=== PATIENT | male | born 1985 | race Caucasian/White ===

== ENCOUNTER 2017-09-08 19:44 | Emergency (ER) | payer OTHER, SELFPAY ==
[2017-09-08] MEDS ORDERED: Amoxicillin/Potassium Clav 875 MG TAB ONE (20:55)
[2017-09-08] MEDS ORDERED: Adacel (T-DAP) 0.5 ML VIAL ONE (20:55)
[2017-09-08] MEDS ORDERED: Sodium Chloride Irrig Solution 250 ML BOT ONE (21:00)
== END 2017-09-08 21:54 | disposition home or self-care (01) ==
LOC: MADERS 19:44
DX: S01.551A Open bite of lip, initial encounter (principal); F43.10 Post-traumatic stress disorder, unspecified; F17.200 Nicotine dependence, unspecified, uncomplicated; W55.01XA Bitten by cat, initial encounter
CPT/HCPCS: 12011; 90471; 90715

== ENCOUNTER 2017-11-11 20:09 | Emergency (ER) | payer OTHER ==
[2017-11-11] MEDS ORDERED: HYDROcodone/Acetaminophen 10/325 mg Tablet ONE (20:29)
[2017-11-11] MEDS ORDERED: Acetaminophen 325 MG TAB ONE (20:30)
[2017-11-11] MEDS ORDERED: Ibuprofen 800 MG TAB ONE (20:30)
--- NOTE | 2017-11-11 21:40 | RAD ---
FOUR VIEWS OF THE LEFT KNEE: 11/11/17 COMPARISON: None. HISTORY: Left knee pain. FINDINGS: Four views left knee shows no evidence of acute fracture or dislocation. No knee effusion is seen. No degenerative changes are present. IMPRESSION: No evidence of acute osseous abnormality. POS: [facility]
== END 2017-11-11 21:46 | disposition home or self-care (01) ==
LOC: MADERS 20:09
DX: S83.422A Sprain of lateral collateral ligament of left knee, initial encounter (principal); F43.10 Post-traumatic stress disorder, unspecified; F17.200 Nicotine dependence, unspecified, uncomplicated; X58.XXXA Exposure to other specified factors, initial encounter; Y93.61 Activity, american tackle football

== ENCOUNTER 2022-10-27 07:28 | Emergency (ER) | payer OTHER ==
[2022-10-27] MEDS ORDERED: Iopamidol 370 76% 100 ML VIAL ONE (08:43)
[2022-10-27 08:52] LABS: Hematocrit 48.2 % (42.0-52.0); Hemoglobin 16.1 g/dL (14.0-18.0); Mean Corpuscular HGB CONC 33.4 g/dL (32.0-36.0); Mean Corpuscular Hemoglobin 32.2 pg (27.0-31.0); Mean Corpuscular Volume 96.7 fl (78.0-98.0); Mean Platelet Volume 13.2 fL (7.4-10.4); Platelet Count 310 10x3/uL (130-400); RBC Distribution Width 11.6 % (11.5-14.5); Red Blood Cell (RBC) Count 4.98 mill/uL (4.70-6.10); White Blood Cell (WBC) Count 14.5 10x3/uL (4.8-10.8)
[2022-10-27 08:58] LABS: Manual Diff?? YES
[2022-10-27 09:01] LABS: Band 1 % (5-11); Eosinophils 1 % (0-10); Lymphocytes 13 % (21-51); MDiff Complete? YES; Monocytes 5 % (0-10); Neutrophil 80 % (42-75)
[2022-10-27 09:02] LABS: Anisocytosis SLIGHT = 6-15 cells (100X) (0-5/hpf); Platelet Adequacy Comment Appears Adequate
[2022-10-27] MEDS ORDERED: fentaNYL 50 mcg/mL 1 mL Vial ONE (09:04)
[2022-10-27] MEDS ORDERED: Dicyclomine 20 MG/2 ML VIAL ONE (09:05)
[2022-10-27] MEDS ORDERED: Lactated Ringer's 1,000 ML ONE (09:05)
[2022-10-27 09:08] LABS: ALT (SGPT) 21 U/L (8-55); AST (SGOT) 16 U/L (5-34); Alkaline Phosphatase 81 U/L (40-110); Anion Gap 16 mmol/L (10-20); BUN (Urea Nitrogen) 9 mg/dL (8.9-20.6); Bilirubin, Total 0.5 mg/dL (0.2-1.2); Calc. Creatinine Clearance 0 mL/min (70-130); Calcium 9.6 mg/dL (7.8-10.44); Carbon Dioxide 24 mmol/L (22-29); Chloride 104 mmol/L (98-107); Estimated GFR 115; Globulin 3.4 g/dL (2.4-3.5); Glucose 110 mg/dL (70-105); Lipase 9 U/L (8-78); Potassium 4.2 mmol/L (3.5-5.1); Protein, Total 7.4 g/dL (6.0-8.3); Sodium 140 mmol/L (136-145)
[2022-10-27 09:29] LABS: Bilirubin Negative (Negative); Blood, Urine Trace (Negative); Clarity Clear (Clear); Glucose, Urine (Dipstick) Negative (Negative); Ketone, Urine Negative (Negative); Leukocyte Negative (Negative); Nitrite Negative (Negative); Protein, Urine (Dipstick) Negative (Neg-Trace)
[2022-10-27 09:32] LABS: Bacteria/HPF Rare-Few HPF (None Seen); CAUTI Indications for Culture Dysuria,urgency,freq; RBC/HPF 0-3 HPF (0-3); Squamous Epithelial 0-3 HPF (0-3); Urine Culture Reflex No No; WBC/HPF None Seen HPF (0-3)
[2022-10-27] MEDS ORDERED: Sodium Chloride 0.9% 100 ML ONE (09:36)
[2022-10-27] MEDS ORDERED: Piperacillin/Tazobactam 4.5 GM VIAL ONE (09:36)
[2022-10-27] MEDS ORDERED: HYDROcodone/Acetaminophen 5/325 mg Tablet ONE (10:53)
[2022-10-28 13:19] LABS: Chlam.trachomatis by PCR,Urine Not Detected (NotDetected); GC N.gonorrhoeae PCR,UrineVOID Not Detected (NotDetected)
== END 2022-10-27 11:10 | disposition home or self-care (01) ==
LOC: MADERS 07:28
DX: K57.20 Diverticulitis of large intestine with perforation and abscess without bleeding (principal); M87.351 Other secondary osteonecrosis, right femur; F17.200 Nicotine dependence, unspecified, uncomplicated
CPT/HCPCS: 74177; 80053; 81001; 83605; 83690; 85025; 87040; 87086; 87491; 87591; 94760; 96365; 96372; 96375; J2543; J3010; J3490; J7120; Q9967